=== PATIENT | female | born 2000 | race Caucasian/White ===

== ENCOUNTER 2022-09-30 04:20 | Emergency (ER) | payer OTHER ==
[2022-09-30] VITALS (7 sets, daily range): BP systolic 131–150; BP diastolic 88–95; PULSE 79–90; RESP 0–16; TEMP 97.4–98.1; O2SAT 98–99
[~2022-09-30] VITALS: Ht 165.1 cm; Wt 117.9 kg
[2022-09-30 11:30] LABS: BASOPHILS % (AUTO) 0.5 % (0.0-2.0); EOSINOPHILS # (AUTO) 0.2 K/uL (0-0.4); EOSINOPHILS % (AUTO) 2.3 % (0.0-4.0); HEMATOCRIT 39.6 % (36-48); HEMOGLOBIN 13.6 g/dL (12.0-16.0); LYMPHOCYTES # (AUTO) 2.7 K/uL (2.5-16.5); LYMPHOCYTES % (AUTO) 36.9 % (20.5-51.1); MEAN CORPUSCULAR HEMOGLOBIN 30 pg (27-31); MEAN CORPUSCULAR HGB CONC 34 g/dL (33-37); MEAN CORPUSCULAR VOLUME 88.6 fL (80-94); MONOCYTES # (AUTO) 0.5 K/uL (0.8-1.0); MONOCYTES % (AUTO) 6.8 % (1.7-9.3); NEUTROPHILS # (AUTO) 3.9 K/uL (1.8-7.7); NEUTROPHILS % (AUTO) 53.5 % (42.2-75.2); PLATELET COUNT (AUTO) 221 K/uL (140-450); RED BLOOD CELL COUNT(AUTO) 4.47 MIL/uL (4.20-5.40); RED CELL DISTRIBUTION WIDTH 12.9 % (11.6-13.7); WHITE BLOOD COUNT (AUTO) 7.3 K/uL (4.8-10.8)
[2022-09-30 12:15] LABS: ALBUMIN 3.5 g/dL (3.4-5.0); ANION GAP 6.9 (8-16); CALCIUM 8.3 mg/dL (8.5-10.1); CARBON DIOXIDE 32.3 mmol/L (21-32); CREATININE 0.7 mg/dL (0.6-1.3); POTASSIUM 4.2 mmol/L (3.5-5.1); TOTAL BILIRUBIN 0.4 mg/dL (0.0-1.0); TOTAL PROTEIN, SERUM 7.6 g/dL (6.4-8.2)
[2022-09-30 12:21] LABS: INR 0.95 (0.8-1.2)
[2022-09-30] MEDS ORDERED: NAPR-1704 PO (14:21)
== END 2022-09-30 15:01 | disposition home or self-care (01) ==
LOC: MED 04:20
DX: R19.00 Intra-abdominal and pelvic swelling, mass and lump, unspecified site (principal); I10 Essential (primary) hypertension; Z79.899 Other long term (current) drug therapy
CPT/HCPCS: 36415; 74177; 76705; 76830; 80053; 81002; 81025; 85025; 85610; 85730; 93976; 99285; Q0092; Q9967

== ENCOUNTER 2022-10-06 17:41 | Emergency (ER) | payer OTHER ==
[~2022-10-06] VITALS: Ht 167.6 cm; Wt 127.5 kg
[~2022-10-06 17:41] MED LIST: NAPR-1704 PO
[2022-10-06 18:17] VITALS: BP 144/86; PULSE 101; RESP 14; TEMP 96.8; O2SAT 98
[2022-10-06 18:55] VITALS: O2SAT 98
[2022-10-06] MEDS ORDERED: KETOROLAC 60 MG/2 ML VIAL IM ONE (19:25)
[2022-10-06] MEDS ORDERED: ONDA8TAB87 PO (19:31)
[2022-10-06] MEDS ORDERED: ACET-8905 PO (19:31)
[2022-10-06] MEDS ORDERED: CIPR500T4 PO (19:31)
[2022-10-06 20:46] VITALS: BP 124/65; PULSE 86; RESP 18; TEMP 97.6; O2SAT 98
== END 2022-10-06 20:51 | disposition home or self-care (01) ==
LOC: MED 17:41
DX: N39.0 Urinary tract infection, site not specified (principal); Z79.899 Other long term (current) drug therapy
CPT/HCPCS: 81002; 81025; 96372; 99283; J1885